=== PATIENT | female | born 1985 | race Caucasian/White ===

== ENCOUNTER 2016-03-24 13:48 | Emergency (ER) | payer MEDICAID ==
[2015-04-17 10:09] VITALS: BMI 21.0
[~2016-03-24 13:48] MED LIST: CARAFATE1 G PO; LANTUS INSULIN10 ML SC; LANTUS SOL100 UNIT/1 SC; NEURONTIN600 MG PO; NORCO 7.5/325 T1 TA1 PO; NOVOLOG MIX 70/10 ML SC; PROTONIX20 MG PO; PROTONIX40 MG PO; REGLAN5 MG PO; ROBITUSSIN DM 110 ML PO; TESSALON PERLE100 MG PO; ZOFRAN4 MG PO
[2016-03-24 17:44] LABS: APPEARANCE HAZY (CLEAR); BILIRUBIN NEGATIVE (NEGATIVE); COLOR STRAW (YELLOW); GLUCOSE 1000 mg/dL (NEGATIVE); KETONE NEGATIVE (NEGATIVE); LEUKOCYTE ESTERASE 1+ (NEGATIVE); NITRITE NEGATIVE (NEGATIVE); PROTEIN 1+ mg/dL (NEGATIVE); UROBILINOGEN NORMAL (NORMAL)
[2016-03-24 17:46] LABS: BACTERIA MODERATE /hpf (NONE SEEN); RED CELLS - URINE 0-5 /hpf (0-5); YEAST OCC /hpf (NONE SEEN)
[2016-03-24 17:59] LABS: BASOPHILS 0.3 % (0.0-2.0); EOSINOPHILS 3.2 % (0-7); HEMATOCRIT 36.7 % (36.0-48.0); HEMOGLOBIN 12.2 g/dL (12-16); IMMATURE GRANULOCYTES 0.7 % (0-5); LYMPHOCYTES 30.4 % (15-50); MCH 29.3 pg (26.0-34.0); MCHC 33.2 g/dL (31.0-37.0); MEAN PLATELET VOLUME 9.7 fL (7.4-10.4); MONOCYTES 4.3 % (2-11); NEUTROPHILS 61.1 % (40-80); RBC 4.17 10x6/uL (4.00-5.40); RDW 13.4 % (11.5-14.5); WBC 11.5 10x3/uL (4.8-10.8)
[2016-03-24 18:00] LABS: PLATELET COUNT 418 10x3/uL (130-400)
[2016-03-24 18:11] LABS: KETONE - SERUM NEGATIVE (NEGATIVE)
[2016-03-24 18:25] LABS: ALBUMIN 3.3 g/dL (3.4-5.0); ALKALINE PHOSPHATASE 158 U/L (46-116); ALT (SGPT) 25 U/L (10-68); CALCIUM 9.9 mg/dL (8.5-10.1); CHLORIDE - SERUM 92 mmol/L (98-107); CREATININE - SERUM 0.9 mg/dL (0.6-1.3); MAGNESIUM - SERUM 2.1 mg/dL (1.8-2.4); POTASSIUM - SERUM 4.9 mmol/L (3.5-5.1); PROTEIN - SERUM 7.8 g/dL (6.4-8.2); SODIUM 129 mmol/L (136-145); UREA NITROGEN 21 mg/dL (7-18); eGFR NON AFRICAN AMERICAN 78 mL/min (90-120)
[2016-03-24 18:26] LABS: CALC OSMOLALITY 287 mosm/kg (275-300)
[2016-03-24 18:27] LABS: GLUCOSE 575 mg/dL (74-106)
== END 2016-03-24 21:12 | disposition home or self-care (01) ==
LOC: D.ER 13:48
PROVIDERS: Nurse Practitioner Family
DX: E11.65 Type 2 diabetes mellitus with hyperglycemia (principal); Z79.4 Long term (current) use of insulin; M79.605 Pain in left leg; M79.604 Pain in right leg; B19.20 Unspecified viral hepatitis C without hepatic coma; F17.200 Nicotine dependence, unspecified, uncomplicated

== ENCOUNTER 2016-03-27 22:04 | Emergency (ER) | payer MEDICAID ==
[2015-04-17 10:09] VITALS: BMI 21.0
== END 2016-03-27 22:46 | disposition left against medical advice (07) ==
LOC: D.ER 22:04
DX: E11.65 Type 2 diabetes mellitus with hyperglycemia (principal); Z79.4 Long term (current) use of insulin

== ENCOUNTER 2016-03-31 21:18 | Emergency (ER) | payer MEDICAID ==
[2015-04-17 10:09] VITALS: BMI 21.0
[2016-03-31 22:07] LABS: APPEARANCE CLEAR (CLEAR); COLOR YELLOW (YELLOW)
[2016-03-31 22:08] LABS: BILIRUBIN NEGATIVE (NEGATIVE); GLUCOSE 250 mg/dL (NEGATIVE); KETONE NEGATIVE (NEGATIVE); LEUKOCYTE ESTERASE NEGATIVE (NEGATIVE); NITRITE NEGATIVE (NEGATIVE); PROTEIN TRACE mg/dL (NEGATIVE); SPECIFIC GRAVITY 1.015 (1.005-1.020); UROBILINOGEN NORMAL (NORMAL)
[2016-03-31 22:20] LABS: BASOPHILS 0.3 % (0.0-2.0); EOSINOPHILS 6.7 % (0-7); HEMATOCRIT 35.2 % (36.0-48.0); IMMATURE GRANULOCYTES 0.4 % (0-5); LYMPHOCYTES 34.8 % (15-50); MCH 29.3 pg (26.0-34.0); MCHC 31.3 g/dL (31.0-37.0); MCV 93.9 fL (80.0-100.0); MEAN PLATELET VOLUME 9.5 fL (7.4-10.4); MONOCYTES 7.9 % (2-11); NEUTROPHILS 49.9 % (40-80); PLATELET COUNT 335 10x3/uL (130-400); RBC 3.75 10x6/uL (4.00-5.40); RDW 14.3 % (11.5-14.5); WBC 9.2 10x3/uL (4.8-10.8)
[2016-03-31 22:32] LABS: ALBUMIN 3.3 g/dL (3.4-5.0); ALKALINE PHOSPHATASE 115 U/L (46-116); ALT (SGPT) 29 U/L (10-68); CALC OSMOLALITY 292 mosm/kg (275-300); CALCIUM 9.3 mg/dL (8.5-10.1); CARBON DIOXIDE 27.8 mmol/L (21.0-32.0); CHLORIDE - SERUM 104 mmol/L (98-107); CREATININE - SERUM 0.8 mg/dL (0.6-1.3); POTASSIUM - SERUM 4.4 mmol/L (3.5-5.1); PROTEIN - SERUM 7.6 g/dL (6.4-8.2); SODIUM 142 mmol/L (136-145); UREA NITROGEN 24 mg/dL (7-18); eGFR NON AFRICAN AMERICAN 90 mL/min (90-120)
[2016-03-31 22:37] LABS: GLUCOSE 200 mg/dL (74-106)
[2016-03-31 22:41] LABS: KETONE - SERUM NEGATIVE (NEGATIVE)
[2016-03-31 22:47] LABS: AMYLASE - SERUM 47 U/L (25-115); LIPASE 265 U/L (73-393); MAGNESIUM - SERUM 1.8 mg/dL (1.8-2.4)
== END 2016-04-01 00:34 | disposition home or self-care (01) ==
LOC: D.ER 21:18
PROVIDERS: Emergency Medicine; Physician Assistant Medical
DX: R60.9 Edema, unspecified (principal); F41.9 Anxiety disorder, unspecified; E11.9 Type 2 diabetes mellitus without complications; Z79.4 Long term (current) use of insulin; B19.20 Unspecified viral hepatitis C without hepatic coma

== ENCOUNTER 2016-06-14 03:25 | Inpatient (IN) | payer MEDICAID ==
[~2016-06-14] VITALS: Ht 170.2 cm; Wt 60.1 kg
[2016-06-14 04:08] LABS: BASOPHILS 0.2 % (0-2); EOSINOPHILS 0.3 % (0-7); HEMATOCRIT 40.7 % (36.0-48.0); HEMOGLOBIN 13.6 g/dL (12-16); IMMATURE GRANULOCYTES 0.2 % (0-5); LYMPHOCYTES 21.6 % (15-50); MCH 28.4 pg (26.0-34.0); MCHC 33.4 g/dL (31.0-37.0); MEAN PLATELET VOLUME 10.4 fL (7.4-10.4); MONOCYTES 2.3 % (2-11); NEUTROPHILS 75.4 % (40-80); PLATELET COUNT 269 10x3/uL (130-400); RBC 4.79 10x6/uL (4.00-5.40); RDW 13.5 % (11.5-14.5)
[2016-06-14 04:14] LABS: KETONE - SERUM SMALL mg/dL (NEGATIVE)
[2016-06-14 04:24] LABS: ALKALINE PHOSPHATASE 88 U/L (46-116); ALT (SGPT) 14 U/L (10-68); AMYLASE - SERUM 27 U/L (25-115); CALC OSMOLALITY 293 mosm/kg (275-300); CALCIUM 10.5 mg/dL (8.5-10.1); CARBON DIOXIDE 24.5 mmol/L (21.0-32.0); CHLORIDE - SERUM 93 mmol/L (98-107); CREATININE - SERUM 1.4 mg/dL (0.6-1.3); LIPASE 152 U/L (73-393); PROTEIN - SERUM 8.2 g/dL (6.4-8.2); SODIUM 134 mmol/L (136-145); UREA NITROGEN 25 mg/dL (7-18); eGFR NON AFRICAN AMERICAN 47 mL/min (90-120)
[2016-06-14 04:26] LABS: GLUCOSE 493 mg/dL (74-106)
[2016-06-14 04:48] LABS: APPEARANCE HAZY (CLEAR); BILIRUBIN NEGATIVE (NEGATIVE); COLOR STRAW (YELLOW); GLUCOSE 1000 mg/dL (NEGATIVE); KETONE MODERATE mg/dL (NEGATIVE); LEUKOCYTE ESTERASE NEGATIVE (NEGATIVE); NITRITE NEGATIVE (NEGATIVE); PROTEIN 2+ mg/dL (NEGATIVE); SPECIFIC GRAVITY 1.015 (1.005-1.020); UROBILINOGEN NORMAL (NORMAL)
[2016-06-14 04:57] LABS: BACTERIA FEW /hpf (NONE SEEN); EPITHELIAL CELLS 0-5 /hpf (0-5); GRANULAR CAST RARE /lpf (NONE SEEN); HYALINE CAST OCC /lpf (NONE SEEN); WHITE CELLS - URINE 0-5 /hpf (0-5); YEAST >1+ /hpf (NONE SEEN)
[2016-06-14] MEDS ORDERED: OMEPRAZOLE20 M1 PO (06:09)
[2016-06-14 06:28] VITALS: BP 121/88; BMI 19.6
--- NOTE | 2016-06-14 07:43 | NUR ---
PT ARRIVED TO ROOM @ 0600 FROM ER. ASSESSMENT COMPLETED BY RN. PT BLOOD GLUCOSE LEVEL PRIOR TO TRANSPORTING TO ROOM 299. BLOOD SUGAR CHECKED BY RN, NOTED TO BE 299. CALLED PHARMACY TO REQUEST INSULIN VIAL, SPOKE WITH ANGY WHO STATES IT WILL BE DELIVERED. STILL AWAITING INSULIN VIAL. NOTIFIED ONCOMING NURSE OF BLOOD SUGAR LEVEL AND AWAITING INSULIN VIAL.
[2016-06-14 08:20] VITALS: BP 121/88
--- NOTE | 2016-06-14 09:10 | NUR ---
PT VOMITING IN TRASH CAN. BLUE BAG GIVEN. TO BATHROOM TO VOID AND PHENERGAN GIVEN WITH 25 GA 1 1/2 NEEDLE TO RIGHT GLUT. CALL LIGHT IN REACH. INSTRUCTED TO CALL FOR ASSIST
[2016-06-14 12:14] VITALS: Ht 170.2 cm; Wt 60.1 kg
[2016-06-14 12:16] LABS: HEMOGLOBIN A1C 11.7 % (4.8-6.0)
[2016-06-14 12:58] VITALS: BP 152/100
--- NOTE | 2016-06-14 13:47 | NUR ---
PT RESTING QUIETLY. STATED EARILER THAT NAUSEA HAD GONE AWAY WITH ZOFRAN DRIP
[2016-06-14 16:19] VITALS: BP 159/98
[2016-06-14 20:00] VITALS: BP 153/101
[2016-06-14 22:32] LABS: UDS - AMPHET NEGATIVE QUAL (NEGATIVE); UDS - BARB NEGATIVE QUAL (NEGATIVE); UDS - BENZO NEGATIVE QUAL (NEGATIVE); UDS - COCAINE NEGATIVE QUAL (NEGATIVE); UDS - METH NEGATIVE QUAL (NEGATIVE); UDS - OPIATE POSITIVE QUAL (NEGATIVE); UDS - PCP NEGATIVE QUAL (NEGATIVE); UDS - THC POSITIVE QUAL (NEGATIVE)
[2016-06-14 23:54] VITALS: BP 131/77
--- NOTE | 2016-06-15 07:30 | NUR ---
PATIENT RECEIVED SITTING UP ON SIDE OF BED ALERT AND VOMITING. SIDE RAILS UP X2. BED IN LOW POSITION. CALL LIGHT IN REACH.
[2016-06-15 08:03] VITALS: BP 161/107
[2016-06-15 08:20] LABS: BASOPHILS 0.1 % (0-2); EOSINOPHILS 0.2 % (0-7); HEMATOCRIT 38.3 % (36.0-48.0); HEMOGLOBIN 12.7 g/dL (12-16); IMMATURE GRANULOCYTES 0.3 % (0-5); LYMPHOCYTES 18.8 % (15-50); MCH 28.3 pg (26.0-34.0); MCHC 33.2 g/dL (31.0-37.0); MCV 85.3 fL (80.0-100.0); MONOCYTES 3.3 % (2-11); NEUTROPHILS 77.3 % (40-80); PLATELET COUNT 248 10x3/uL (130-400); RBC 4.49 10x6/uL (4.00-5.40); RDW 14.1 % (11.5-14.5); WBC 13.2 10x3/uL (4.8-10.8)
--- NOTE | 2016-06-15 08:29 | NUR ---
SITTING UP ON SIDE OF BED ALERT. NO SIGNS OF DISTRESS NOTED. SCHEDULED PROTONIX ADMINISTERED. C/O PAIN 11/26. MORPHINE ADMINSITERED PER PRN ORDER. NO FURTHER NEEDS VOICED. SIDE RAILS UP X2. BED IN LOW POSITION. CALL LIGHT IN REACH.
[2016-06-15 08:51] LABS: ALBUMIN 3.6 g/dL (3.4-5.0); BILIRUBIN - TOTAL 0.59 mg/dL (0.2-1.3); CALCIUM 9.3 mg/dL (8.5-10.1); CARBON DIOXIDE 18.8 mmol/L (21.0-32.0); CREATININE - SERUM 1.1 mg/dL (0.6-1.3); PROTEIN - SERUM 7.6 g/dL (6.4-8.2); THYROID STIMULATING HORMONE 0.1 uIU/mL (0.36-3.74)
[2016-06-15 08:52] LABS: ANION GAP 23.4 mmol/L (8-16); POTASSIUM - SERUM 3.2 mmol/L (3.5-5.1)
--- NOTE | 2016-06-15 10:04 | NUR ---
PATIENT IN LEFT LATERAL POSITION RESTING WITH EYES CLOSED. RESPIRATIONS EVEN AND UNLABORED. SIDE RAILS UP X2. BED IN LOW POSITION. CALL LIGHT IN REACH.
--- NOTE | 2016-06-15 12:32 | NUR ---
PATIENT IN BED CRYING. C/O PAIN TO RUQ ABD AND BACK 10/10. 2MG MORPHINE ADMINISTERED SLOW IVP PER PRN ORDER. NO FURTHER NEEDS VOICED. SIDE RAILS UP X2. BED IN LOW POSITION. CALL LIGHT IN REACH.
[2016-06-15 12:33] VITALS: BP 123/71
[2016-06-15] MEDS ORDERED: NOVOLOG MIX 70/10 ML SC (15:28)
--- NOTE | 2016-06-15 15:30 | NUR ---
PATIENT ALERT IN MID ISABEL POSITION. RESPIRATIONS EVEN AND UNLABORED. SIDE RAILS UP X2. BED IN LOW POSITION. CALL LIGHT IN REACH. NO NEEDS VOICED.
[2016-06-15 15:34] VITALS: BP 126/76
--- NOTE | 2016-06-15 17:30 | NUR ---
PATIENT IN RIGHT LATERAL POSITION RESTING QUIETLY WITH EYES CLOSED. RESPIRATIONS EVEN AND UNLABORED. SIDE RAILS UP X2. BED IN LOW POSITION. CALL LIGHT IN REACH.
--- NOTE | 2016-06-15 19:55 | NUR ---
PT SITTING UP ON EDGE OF BED, ASSESSMENT COMPLETED, C/O PAIN AND NAUSEA WITH MOVEMENT, IV INFUSING TO R FOREARM, VISITOR IN ROOM, SR'S UP , CL IN REACH, WILL MONITOR
[2016-06-15 20:00] VITALS: BP 146/103
--- NOTE | 2016-06-15 20:45 | NUR ---
MEDS GIVEN PER MAR BY Tyrese RODRIGUEZ RN
--- NOTE | 2016-06-15 21:48 | NUR ---
RESTING WITH EYES CLOSED, NO DISTRESS NOTED, CL IN REACH, WILL CONTINUE TO MONITOR
--- NOTE | 2016-06-15 23:33 | NUR ---
RESTING WITH EYES CLOSED, RESP WITH EASE, NO DISTRESS NOTED, CL IN REACH
--- NOTE | 2016-06-16 01:03 | NUR ---
PRN MORPHINE AND PHENERGAN GIVEN FOR C/O ABD PAIN 11/26 AND NAUSEA, NO EMESIS AT THIS TIME, NARDA WELL, SR'S UP, CL IN REACH
[2016-06-16 04:00] VITALS: BP 157/102
--- NOTE | 2016-06-16 05:16 | NUR ---
PRN MORPHINE AND PHENERGAN GIVEN FOR C/O OF ABD PAIN 10/10 AND NAUSEA WITH NO EMESIS ALONG WITH ROUTINE MEDS, NARDA WELL, LAB IN ROOM, CL IN REACH
--- NOTE | 2016-06-16 05:42 | NUR ---
AMBULATING IN ONTIVEROS WITH VISITOR, ADVISED TO STAY NEAR ROOM AND NURSES DESK, UNDERSTANDING VOICED, NO DISTRESS NOTED
[2016-06-16 06:20] LABS: BASOPHILS 0.1 % (0-2); EOSINOPHILS 2.7 % (0-7); HEMOGLOBIN 12.8 g/dL (12-16); IMMATURE GRANULOCYTES 0.2 % (0-5); LYMPHOCYTES 37.9 % (15-50); MCHC 32.8 g/dL (31.0-37.0); MCV 85.3 fL (80.0-100.0); MEAN PLATELET VOLUME 10.4 fL (7.4-10.4); MONOCYTES 8.4 % (2-11); NEUTROPHILS 50.7 % (40-80); PLATELET COUNT 269 10x3/uL (130-400); RBC 4.57 10x6/uL (4.00-5.40); RDW 14.1 % (11.5-14.5); WBC 14.5 10x3/uL (4.8-10.8)
[2016-06-16 06:47] LABS: ALBUMIN 3.3 g/dL (3.4-5.0); ALKALINE PHOSPHATASE 68 U/L (46-116); ALT (SGPT) 13 U/L (10-68); AMYLASE - SERUM 36 U/L (25-115); CALCIUM 8.9 mg/dL (8.5-10.1); CARBON DIOXIDE 18.8 mmol/L (21.0-32.0); CHLORIDE - SERUM 100 mmol/L (98-107); LIPASE 253 U/L (73-393); POTASSIUM - SERUM 3.1 mmol/L (3.5-5.1); SODIUM 138 mmol/L (136-145); eGFR NON AFRICAN AMERICAN 90 mL/min (90-120)
[2016-06-16 06:48] LABS: CALC OSMOLALITY 278 mosm/kg (275-300); CREATININE - SERUM 0.8 mg/dL (0.6-1.3); GLUCOSE 186 mg/dL (74-106); UREA NITROGEN 8 mg/dL (7-18)
--- NOTE | 2016-06-16 07:30 | NUR ---
PATIENT RECEIVED IN LOW ISABEL POSITION RESTING QUIETLY WITH EYES CLOSED. RESPIRATIONS EVEN AND UNLABORED. SIDE RAILS UP X2. BED IN LOW POSITION. CALL LIGHT IN REACH.
[2016-06-16 07:57] VITALS: BP 129/89
--- NOTE | 2016-06-16 09:16 | NUR ---
ALERT IN BED. SCHEDULED MEDICATION ADMINISTERED WELL PRN MORPHINE FOR PAIN 10/27 AND PHENERGAN FOR NAUSEA. DENIES FURTHER NEEDS. SIDE RAILS UP X2. BED IN LOW POSITION. CALL LIGHT IN REACH.
[2016-06-16 12:41] VITALS: BP 117/76
[2016-06-16 15:57] VITALS: BP 138/98
--- NOTE | 2016-06-16 17:22 | NUR ---
ALERT IN BED. C/O PAIN 10/27. MORPHINE PER PRN ORDER. CONSENTS OBTAINED FOR SCHEDULED EGD. DENIES NEEDS. SIDE RAILS UP X2. BED IN LOW POSITION. CALL LIGHT IN REACH.
--- NOTE | 2016-06-16 19:15 | NUR ---
RECIEVED SHIFT REPORT. PT IS LYING IN BED. ALERT AND ORIENTED AND ABLE TO VERBALIZE NEEDS. IV IS PATENT AND FLUIDS ARE RUNNING PER ORDER. SCD'S OFF AT THIS TIME. PT IS AMBULATORY BUT WAS INSTRUCTED TO CALL FOR ANY ASSISTANCE NEEDED. PT STATES PAIN IS 9/10. NO NEEDS ARE VERBALIZED AT THIS TIME. WILL CONTINUE TO MONITOR. SIDE RAILS ARE UP X 2. BED IS IN LOWEST POSITION. CALL LIGHT IS WITHIN REACH.
[2016-06-16 20:00] VITALS: BP 145/109
--- NOTE | 2016-06-16 20:59 | NUR ---
SHIFT ASSESSMENT COMPLETED. NIGHT MEDS GIVEN WITH NO PROBLEMS. PT C/O NAUSEA. ADMINISTERED PRESCRIBED PRN IM PHENERGAN PER ORDER. PT RECIEVED NO INSULIN PER SLIDING SCALE FOR SGAB=791. NO NEEDS ARE VOICED. WILL MONITOR. SIDE RAILS X 2. BED LOW. CALL LIGHT IN REACH.
[2016-06-17 04:00] VITALS: BP 148/102
[2016-06-17 06:08] LABS: BASOPHILS 0.2 % (0-2); EOSINOPHILS 4.3 % (0-7); HEMATOCRIT 37.2 % (36.0-48.0); HEMOGLOBIN 12.5 g/dL (12-16); IMMATURE GRANULOCYTES 0.3 % (0-5); LYMPHOCYTES 30.6 % (15-50); MCH 28.3 pg (26.0-34.0); MCHC 33.6 g/dL (31.0-37.0); MCV 84.2 fL (80.0-100.0); MEAN PLATELET VOLUME 10.1 fL (7.4-10.4); MONOCYTES 9.3 % (2-11); NEUTROPHILS 55.3 % (40-80); PLATELET COUNT 250 10x3/uL (130-400); RBC 4.42 10x6/uL (4.00-5.40); RDW 13.7 % (11.5-14.5); WBC 11.8 10x3/uL (4.8-10.8)
[2016-06-17 06:33] LABS: INR 0.99 (0.85-1.17); PROTIME 12.9 SECONDS (11.6-15.0)
[2016-06-17 06:52] LABS: ALBUMIN 3.1 g/dL (3.4-5.0); ALKALINE PHOSPHATASE 65 U/L (46-116); ALT (SGPT) 12 U/L (10-68); AMYLASE - SERUM 37 U/L (25-115); BILIRUBIN - TOTAL 0.75 mg/dL (0.2-1.3); CALCIUM 8.4 mg/dL (8.5-10.1); CARBON DIOXIDE 21.6 mmol/L (21.0-32.0); CHLORIDE - SERUM 101 mmol/L (98-107); CREATININE - SERUM 0.8 mg/dL (0.6-1.3); GLUCOSE 178 mg/dL (74-106); LIPASE 269 U/L (73-393); PROTEIN - SERUM 6.9 g/dL (6.4-8.2); SODIUM 139 mmol/L (136-145); eGFR NON AFRICAN AMERICAN 90 mL/min (90-120)
[2016-06-17 06:53] LABS: CALC OSMOLALITY 278 mosm/kg (275-300); UREA NITROGEN 4 mg/dL (7-18)
--- NOTE | 2016-06-17 07:25 | NUR ---
PATIENT RECEIVED IN LEFT LATERAL POSITION RESTING QUIETLY. RESPIRATIONS EVEN AND UNLABORED. SIDE RAILS UP X2. BED IN LOW POSITION. CALL LIGHT IN REACH.
[2016-06-17 07:54] VITALS: BP 169/110
--- NOTE | 2016-06-17 08:12 | NUR ---
PATIENT OFF FLOOR TO GI LAB
--- NOTE | 2016-06-17 09:01 | NUR ---
PATIENT BACK TO ROOM FROM GI LAB VIA BED. A/O X4. NO SIGNS OF DISTRESS NOTED. SIDE RAILS UP X2. BED IN LOW POSITION. CALL LIGHT IN REACH.
[2016-06-17 11:26] VITALS: BP 166/110
--- NOTE | 2016-06-17 12:10 | NUR ---
ALERT IN BED TALKING ON PHONE. NO SIGNS OF DISTRESS NOTED. SIDE RAILS UP X2. BED IN LOW POSITION. CALL LIGHT IN REACH.
--- NOTE | 2016-06-17 13:25 | NUR ---
ALERT IN BED. C/O PAIN 10/27. 2MG MORPHINE ADMINISTERED SLOW IVP. WELL TOLERATED. DENIES FURTHER NEEDS. CALL LIGHT IN REACH. BED IN LOW POSITION. GUEST AT BEDSIDE.
--- NOTE | 2016-06-17 14:15 | NUR ---
PATIENT SITTING UP ON SIDE OF BED. NOW RATES PAIN 6/10. NO NEEDS VOICED. BED IN LOW POSITION. CALL LIGHT IN REACH.
[2016-06-17 15:41] VITALS: BP 110/65
--- NOTE | 2016-06-17 15:46 | NUR ---
NUTRITION MONITORING & EVAL PER PT REQUEST PROVIDED DIET INFORMATION FOR GASTROPARESIS, LOW FIBER DIET. RD FOLLOWING
--- NOTE | 2016-06-17 16:15 | NUR ---
ALERT IN BED. NO SIGNS OF DISTRESS NOTED. ACCU CHECK 156. INSULIN PER SLIDING SCALE. DENIES NEEDS. SIDE RAILS UP X2. BED IN LOW POSITION. CALL LIGHT IN REACH.
[2016-06-17 20:00] VITALS: BP 130/85
--- NOTE | 2016-06-17 20:05 | NUR ---
SITTING UP IN BED TALKING WITH VISITOR, ASSESSMENT COMPLETED, NO ACUTE DISTRESS NOTED, DENIES NAUSEA, SR'S UP, CL IN REACH, WILL MONITOR
--- NOTE | 2016-06-17 22:00 | NUR ---
MEDS GIVEN PER APR, 8 UNITS INSULIN GIVEN PER SLIDING SCALE, PRN MORPHINE GIVEN FOR C/O ABD PAIN 08/26, NARDA ALL WELL, SANDWHICH GIVEN PER REQUEST, VISITOR IN ROOM, CL IN REACH
--- NOTE | 2016-06-17 23:50 | NUR ---
RESTING WITH EYES CLOSED, RESP WITH EASE, NO DISTRESS NOTED, CL IN REACH
[2016-06-18] VITALS: BP 105/63
[2016-06-18 05:38] LABS: BASOPHILS 0.1 % (0-2); EOSINOPHILS 7.4 % (0-7); HEMATOCRIT 32.5 % (36.0-48.0); HEMOGLOBIN 10.7 g/dL (12-16); IMMATURE GRANULOCYTES 0.1 % (0-5); LYMPHOCYTES 45.7 % (15-50); MCH 27.6 pg (26.0-34.0); MCHC 32.9 g/dL (31.0-37.0); MCV 83.8 fL (80.0-100.0); MEAN PLATELET VOLUME 9.9 fL (7.4-10.4); MONOCYTES 8.3 % (2-11); NEUTROPHILS 38.4 % (40-80); PLATELET COUNT 243 10x3/uL (130-400); RBC 3.88 10x6/uL (4.00-5.40); WBC 9.3 10x3/uL (4.8-10.8)
[2016-06-18 06:10] LABS: ALBUMIN 2.7 g/dL (3.4-5.0); ALKALINE PHOSPHATASE 54 U/L (46-116); ALT (SGPT) 11 U/L (10-68); AMYLASE - SERUM 36 U/L (25-115); BILIRUBIN - TOTAL 0.48 mg/dL (0.2-1.3); CALC OSMOLALITY 279 mosm/kg (275-300); CALCIUM 8.2 mg/dL (8.5-10.1); CARBON DIOXIDE 25.9 mmol/L (21.0-32.0); CHLORIDE - SERUM 106 mmol/L (98-107); CREATININE - SERUM 0.8 mg/dL (0.6-1.3); GLUCOSE 177 mg/dL (74-106); LIPASE 305 U/L (73-393); POTASSIUM - SERUM 3.1 mmol/L (3.5-5.1); PROTEIN - SERUM 5.8 g/dL (6.4-8.2); SODIUM 140 mmol/L (136-145); UREA NITROGEN 5 mg/dL (7-18); eGFR NON AFRICAN AMERICAN 90 mL/min (90-120)
--- NOTE | 2016-06-18 07:35 | NUR ---
PATIENT SITTING UP IN BED DOING HER MAKE UP. PATIENT SMILING. STATED SHE IS READY FOR BREAKFAST. PATIENT DENIES NEEDS. NO SIGNS OF DISTRESS NOTED. BED IN LOWEST POSITION, CALL LIGHT IN REACH. BED RAILS UP X'S 2.
--- NOTE | 2016-06-18 08:02 | NUR ---
REPORT GIVEN TO LU PHILIPPE.
[2016-06-18 08:07] VITALS: BP 107/72
--- NOTE | 2016-06-18 09:24 | NUR ---
Patient Name: GREGOR GARCIA Admission Status: ER Accout number: [id number] Admission Date: 06-14-2016 : 1985 Admission Diagnosis:VOMITING, UNSPECIFIED Attending: LORI Current LOS: 4 Anticipated DC Date: 06-21-2016 Planned Disposition: Home Primary Insurance: MEDICAID [place] PENDING Discharge Planning Comments: CM MET WITH PATIENT REGARDING D/C NEEDS AND PLANS. PATIENT STATED HER FRIEND (DWIGHT) WILL DRIVE HER HOME AT DISCHARGE. PATIENT STATED THERE IS ONE STEP W/RAILING TO ENTER HOME AND NO STAIRS INSIDE. PATIENT STATED SHE IS INDEPENDENT WITH HER CARE. PATIENT HAS A GLUCOMETER AND CHECKS HER SUGAR 2X A DAY. PATIENT SEES ([facility]) AT [facility]. PATIENTS PHARMACY IS [facility]. PATIENT DOES NOT WANT HOME HEALTH AT DISCHARGE. CM WILL CONTINUE TO FOLLOW PATIENT WITH D/C NEEDS AND PLANS. PCP [facility] ([facility]) [facility] [employer] [phone] DWIGHT (FRIEND) [phone] [place]: Emeli Kim Is the patient Alert and Oriented? Yes 0 * How many steps to enter\exit or inside your home? 1 W/RAIL 0 * PCP [facility] ([facility]) 0 * Pharmacy [facility] [employer] 0 * Preadmission Environment Home with Family 0 * ADLs Independent 0 * Equipment Glucometer 0 * List name and contact numbers for known caregivers / representatives who currently or will assist patient after discharge: DWIGHT (FRIEND) [phone] 0 * Community resources currently utilized None 0 * Additional services required to return to the preadmission environment? Yes 0 * Can the patient safely return to the preadmission environment? Yes 0 * Has this patient been hospitalized within the prior 30 days at any hospital? No 0 Grand Total: 0
--- NOTE | 2016-06-18 10:24 | OP ---
PATIENT NAME: GREGOR GARCIA MEDICAL RECORD: [id number] :[birth year] LOCATION:[id number] ADMISSION DATE:06/14/16 SURGEON: PRABHAKAR CRENSHAW DO DATE OF OPERATION: 06/17/2016 PROCEDURE: EGD with biopsies. INDICATIONS: Epigastric abdominal pain, nausea and vomiting, history of gastroparesis. SCOPE: Olympus video gastroscope. MEDICATIONS: Propofol 220 mg IV per anesthesia. FINDINGS: Informed consent was given. The patient was made comfortable with the above medication. After reaching an adequate level of sedation by slow IV push, the patient was placed on her left side. The endoscope was then advanced under direct visualization through the mouth to the second portion of the duodenum. The upper third of the esophagus appeared normal. There was evidence of moderate LA class B reflux-induced esophagitis in the middle and distal thirds of the esophagus down to the GE junction. There were some erosions and ulcerations present with this esophagitis. The endoscope was advanced into the stomach and retroflexed to view the cardia where a small sliding hiatal hernia was present. In the body and fundus of the stomach, there was a [id number] amount of fluid and food retention, which was easily suctioned through the endoscope. There were areas of patchy gastritis located throughout the fundus, body, and antrum of the stomach. Random biopsies were taken and submitted for histology. The endoscope was advanced down into the duodenum where the bulb and second portion appeared normal from the mucosa standpoint. There was a large diverticulum noted in the transition from the first to second portion of the duodenum. The endoscope was then withdrawn from the patient. The patient tolerated the procedure well and there were no complications. IMPRESSION: 1. Moderate LA class B reflux-induced esophagitis. 2. Small sliding hiatal hernia. 3. Patchy gastritis, biopsies taken. 4. Small sliding hiatal hernia. 5. Duodenal diverticulum. PLAN AND RECOMMENDATIONS: 1. Return to floor. 2. Continue Reglan 5 mg IV q.a.c. and h.s. 3. Recommend small frequent meals for gastroparesis. 4. Glycemic control. 5. Continue PPI therapy at 40-mg equivalent daily for 8 weeks. 6. Carafate suspension 1 g q.a.c. and h.s. times 14 days to help with healing of gastritis and esophagitis. 7. Marijuana cessation. TRANSINT:[id number] Voice Confirmation ID: [id number] DOCUMENT ID: [id number] OPERATIVE REPORT [id number] GREGOR GARCIA,PRABHAKAR Stauffer DO at 1024 CC: [id number] DICTATION DATE: 06/17/1650 FORESTRY PATROLMAN: 06/17/16 0958 ADM IN [facility] [address] [id number]
[2016-06-18] MEDS ORDERED: OMEPRAZOLE40 MG PO (11:25)
[2016-06-18] MEDS ORDERED: REGLAN5 MG PO (11:26)
[2016-06-18] MEDS ORDERED: NEURONTIN600 MG PO (12:51)
--- NOTE | 2016-06-18 13:23 | NUR ---
PT C/O LIGHTHEADNESS. BP CHECKED WITH 92/54 AND BS OF 64. JOSIAS MILK, KEYSHA CRACKERS AND PEANUT BUTTER GIVEN. WILL RECHECK SUGAR SHORTLY
--- NOTE | 2016-06-18 13:35 | NUR ---
CM REASSESSMENT NOTE: PATIENT IS DISCHARGING HOME TODAY-FRIEND IS DRIVING HER. PATIENT REF. HOME HEALTH AND PATIENT HAD NO OTHER NEEDS.
--- NOTE | 2016-06-18 13:56 | NUR ---
bs 100. no complaints of headache, blurred vision, or dizziness. discharge paper reviewed with patient and friend in room.
== END 2016-06-18 14:06 | disposition home or self-care (01) | DRG 638 ==
LOC: D.ER 03:25 → D.MS 05:11
PROVIDERS: Emergency Medicine; Internal Medicine Gastroenterology; ADMIT Family Medicine
PROC: 0DB68ZX Excision of Stomach, Via Natural or Artificial Opening Endoscopic, Diagnostic (ICD-10-PCS; principal; 2016-06-17 08:30)
DX: E10.65 Type 1 diabetes mellitus with hyperglycemia (principal); K22.10 Ulcer of esophagus without bleeding; N17.9 Acute kidney failure, unspecified; E10.40 Type 1 diabetes mellitus with diabetic neuropathy, unspecified; Z79.4 Long term (current) use of insulin; E86.0 Dehydration; R10.13 Epigastric pain; R00.0 Tachycardia, unspecified; F17.200 Nicotine dependence, unspecified, uncomplicated; B18.2 Chronic viral hepatitis C; F12.20 Cannabis dependence, uncomplicated; K21.0 Gastro-esophageal reflux disease with esophagitis; K44.9 Diaphragmatic hernia without obstruction or gangrene; K29.70 Gastritis, unspecified, without bleeding; K57.10 Diverticulosis of small intestine without perforation or abscess without bleeding

== ENCOUNTER 2016-06-22 23:06 | Emergency (ER) | payer MEDICAID ==
[2016-06-14 12:14] VITALS: BMI 19.5
[~2016-06-22 23:06] MED LIST changes: +OMEPRAZOLE20 M1 PO; +OMEPRAZOLE40 MG PO
[2016-06-23 00:02] LABS: BASOPHILS 0.1 % (0-2); EOSINOPHILS 3.5 % (0-7); HEMATOCRIT 33.8 % (36.0-48.0); HEMOGLOBIN 10.9 g/dL (12-16); IMMATURE GRANULOCYTES 0.2 % (0-5); LYMPHOCYTES 41.9 % (15-50); MCH 27.9 pg (26.0-34.0); MCHC 32.2 g/dL (31.0-37.0); MCV 86.7 fL (80.0-100.0); MEAN PLATELET VOLUME 9.4 fL (7.4-10.4); MONOCYTES 7.9 % (2-11); NEUTROPHILS 46.4 % (40-80); PLATELET COUNT 301 10x3/uL (130-400); RDW 15.1 % (11.5-14.5); WBC 10.1 10x3/uL (4.8-10.8)
[2016-06-23 00:16] LABS: ALBUMIN 2.9 g/dL (3.4-5.0); ANION GAP 11.2 mmol/L (8-16); CARBON DIOXIDE 27.7 mmol/L (21.0-32.0); CREATININE - SERUM 1.1 mg/dL (0.6-1.3); POTASSIUM - SERUM 3.9 mmol/L (3.5-5.1); PROTEIN - SERUM 6.5 g/dL (6.4-8.2)
[2016-06-23 00:34] LABS: BILIRUBIN - TOTAL 0.12 mg/dL (0.2-1.3)
[2016-06-23 00:51] LABS: APPEARANCE CLEAR (CLEAR); COLOR YELLOW (YELLOW); LEUKOCYTE ESTERASE NEGATIVE (NEGATIVE); NITRITE NEGATIVE (NEGATIVE); PROTEIN TRACE mg/dL (NEGATIVE)
[2016-06-23 00:52] LABS: BILIRUBIN NEGATIVE (NEGATIVE); GLUCOSE 1000 mg/dL (NEGATIVE); HCG URINE NEGATIVE (NEGATIVE); KETONE NEGATIVE (NEGATIVE); UROBILINOGEN NORMAL (NORMAL)
== END 2016-06-23 02:00 | disposition home or self-care (01) ==
LOC: D.ER 23:06
PROVIDERS: Emergency Medicine
DX: R73.9 Hyperglycemia, unspecified (principal); R22.43 Localized swelling, mass and lump, lower limb, bilateral; E11.9 Type 2 diabetes mellitus without complications; Z79.4 Long term (current) use of insulin

== ENCOUNTER 2016-11-06 10:35 | Emergency (ER) | payer MEDICAID ==
[2016-06-14 12:14] VITALS: BMI 19.5
[2016-11-06 11:13] LABS: BASOPHILS 0.2 % (0-2); EOSINOPHILS 1.9 % (0-7); HEMATOCRIT 39.5 % (36.0-48.0); HEMOGLOBIN 13.4 g/dL (12-16); IMMATURE GRANULOCYTES 0.2 % (0-5); MCHC 33.9 g/dL (31.0-37.0); MCV 91.4 fL (80.0-100.0); MEAN PLATELET VOLUME 9.9 fL (7.4-10.4); MONOCYTES 8.2 % (2-11); NEUTROPHILS 60.5 % (40-80); PLATELET COUNT 292 10x3/uL (130-400); RBC 4.32 10x6/uL (4.00-5.40); RDW 14.3 % (11.5-14.5); WBC 9.6 10x3/uL (4.8-10.8)
[2016-11-06 11:19] LABS: HCG URINE NEGATIVE (NEGATIVE)
[2016-11-06 11:19] LABS: KETONE - SERUM NEGATIVE (NEGATIVE)
[2016-11-06 11:25] LABS: UDS - AMPHET NEGATIVE QUAL (NEGATIVE); UDS - BARB NEGATIVE QUAL (NEGATIVE); UDS - BENZO NEGATIVE QUAL (NEGATIVE); UDS - COCAINE NEGATIVE QUAL (NEGATIVE); UDS - METH NEGATIVE QUAL (NEGATIVE); UDS - OPIATE NEGATIVE QUAL (NEGATIVE); UDS - PCP NEGATIVE QUAL (NEGATIVE); UDS - THC POSITIVE QUAL (NEGATIVE)
[2016-11-06 11:27] LABS: ALBUMIN 3.8 g/dL (3.4-5.0); ALKALINE PHOSPHATASE 69 U/L (46-116); ALT (SGPT) 17 U/L (10-68); AMYLASE - SERUM 28 U/L (25-115); CALC OSMOLALITY 288 mosm/kg (275-300); CALCIUM 9.2 mg/dL (8.5-10.1); CARBON DIOXIDE 28.2 mmol/L (21.0-32.0); CHLORIDE - SERUM 97 mmol/L (98-107); CREATININE - SERUM 1.3 mg/dL (0.6-1.3); LIPASE 181 U/L (73-393); POTASSIUM - SERUM 4.1 mmol/L (3.5-5.1); SODIUM 135 mmol/L (136-145); UREA NITROGEN 29 mg/dL (7-18); eGFR NON AFRICAN AMERICAN 51 mL/min (90-120)
[2016-11-06 11:29] LABS: D-DIMER-QUANTITATIVE < 0.27 ug/mLFEU (0.20-0.54)
[2016-11-06 11:31] LABS: GLUCOSE 328 mg/dL (74-106)
[2016-11-06 11:44] LABS: APPEARANCE HAZY (CLEAR); BACTERIA FEW /hpf (NONE SEEN); BILIRUBIN NEGATIVE (NEGATIVE); COLOR YELLOW (YELLOW); EPITHELIAL CELLS 0-5 /hpf (0-5); GLUCOSE 250 mg/dL (NEGATIVE); KETONE NEGATIVE (NEGATIVE); LEUKOCYTE ESTERASE NEGATIVE (NEGATIVE); MUCUS <1+ /lpf (NONE SEEN); NITRITE NEGATIVE (NEGATIVE); PROTEIN 3+ mg/dL (NEGATIVE); RED CELLS - URINE 0-5 /hpf (0-5); SPECIFIC GRAVITY 1.015 (1.005-1.020); UROBILINOGEN NORMAL (NORMAL); WHITE CELLS - URINE RARE /hpf (0-5)
== END 2016-11-06 12:05 | disposition left against medical advice (07) ==
LOC: D.ER 10:35
PROVIDERS: Emergency Medicine; Nurse Practitioner Family
DX: R10.13 Epigastric pain (principal); R11.10 Vomiting, unspecified; E11.65 Type 2 diabetes mellitus with hyperglycemia; Z79.4 Long term (current) use of insulin; B19.20 Unspecified viral hepatitis C without hepatic coma

== ENCOUNTER 2016-12-16 13:28 | Emergency (ER) | payer MEDICAID ==
[2016-06-14 12:14] VITALS: BMI 19.5
[2016-12-16 14:43] LABS: BASOPHILS 0.2 % (0-2); HEMATOCRIT 36.1 % (36.0-48.0); HEMOGLOBIN 11.9 g/dL (12-16); IMMATURE GRANULOCYTES 0.2 % (0-5); LYMPHOCYTES 30.7 % (15-50); MCH 31.2 pg (26.0-34.0); MCV 94.5 fL (80.0-100.0); MEAN PLATELET VOLUME 9.9 fL (7.4-10.4); MONOCYTES 4.3 % (2-11); NEUTROPHILS 60.6 % (40-80); PLATELET COUNT 276 10x3/uL (130-400); RBC 3.82 10x6/uL (4.00-5.40); RDW 13.3 % (11.5-14.5); WBC 10.6 10x3/uL (4.8-10.8)
[2016-12-16 14:59] LABS: ALBUMIN 3.6 g/dL (3.4-5.0); BILIRUBIN - TOTAL 0.11 mg/dL (0.2-1.3); CALCIUM 9.9 mg/dL (8.5-10.1); CARBON DIOXIDE 26.1 mmol/L (21.0-32.0); CREATININE - SERUM 1.2 mg/dL (0.6-1.3); POTASSIUM - SERUM 5.1 mmol/L (3.5-5.1); PROTEIN - SERUM 7.5 g/dL (6.4-8.2)
== END 2016-12-16 15:20 | disposition left against medical advice (07) ==
LOC: D.ER 13:28
PROVIDERS: Family Medicine
DX: E87.5 Hyperkalemia (principal)

== ENCOUNTER 2017-02-08 12:06 | Emergency (ER) | payer MEDICAID ==
[2016-06-14 12:14] VITALS: BMI 19.5
== END 2017-02-08 13:47 | disposition home or self-care (01) ==
LOC: D.ER 12:06
DX: G62.9 Polyneuropathy, unspecified (principal); E11.9 Type 2 diabetes mellitus without complications; Z79.4 Long term (current) use of insulin; B19.20 Unspecified viral hepatitis C without hepatic coma; F17.200 Nicotine dependence, unspecified, uncomplicated

== ENCOUNTER 2017-07-15 08:16 | Emergency (ER) | payer MEDICAID ==
[2016-06-14 12:14] VITALS: BMI 19.5
[2017-07-15 09:18] LABS: APPEARANCE CLOUDY (CLEAR); BILIRUBIN NEGATIVE (NEGATIVE); COLOR YELLOW (YELLOW); GLUCOSE 50 mg/dL (NEGATIVE); KETONE SMALL mg/dL (NEGATIVE); NITRITE NEGATIVE (NEGATIVE); PROTEIN 3+ mg/dL (NEGATIVE); SPECIFIC GRAVITY 1.015 (1.005-1.020); UROBILINOGEN NORMAL (NORMAL)
[2017-07-15 09:19] LABS: BACTERIA MANY /hpf (NONE SEEN); EPITHELIAL CELLS 0-5 /hpf (0-5); MUCUS <1+ /lpf (NONE SEEN); RED CELLS - URINE 0-5 /hpf (0-5); WHITE CELLS - URINE 25-50 /hpf (0-5)
[2017-07-15 09:22] LABS: BASOPHILS 0.2 % (0-2); EOSINOPHILS 5.6 % (0-7); HEMATOCRIT 36.6 % (36.0-48.0); IMMATURE GRANULOCYTES 0.3 % (0-5); LYMPHOCYTES 29.8 % (15-50); MCH 28.2 pg (26.0-34.0); MCHC 32.8 g/dL (31.0-37.0); MCV 85.9 fL (80.0-100.0); MEAN PLATELET VOLUME 9.8 fL (7.4-10.4); MONOCYTES 8.1 % (2-11); PLATELET COUNT 317 10x3/uL (130-400); RBC 4.26 10x6/uL (4.00-5.40); RDW 14.8 % (11.5-14.5); WBC 13.3 10x3/uL (4.8-10.8)
[2017-07-15 09:45] LABS: ALBUMIN 3.7 g/dL (3.4-5.0); ANION GAP 15.4 mmol/L (8-16); BILIRUBIN - TOTAL 0.36 mg/dL (0.2-1.3); CALCIUM 9.3 mg/dL (8.5-10.1); CARBON DIOXIDE 26.7 mmol/L (21.0-32.0); CREATININE - SERUM 1.5 mg/dL (0.6-1.3); POTASSIUM - SERUM 5.1 mmol/L (3.5-5.1); PROTEIN - SERUM 7.3 g/dL (6.4-8.2)
[2017-07-15 09:54] LABS: HCG URINE NEGATIVE (NEGATIVE)
== END 2017-07-15 11:28 | disposition home or self-care (01) ==
LOC: D.ER 08:16
PROVIDERS: Family Medicine
DX: N20.1 Calculus of ureter (principal); N39.0 Urinary tract infection, site not specified; R10.9 Unspecified abdominal pain; F17.200 Nicotine dependence, unspecified, uncomplicated; E11.9 Type 2 diabetes mellitus without complications; Z79.4 Long term (current) use of insulin; B19.20 Unspecified viral hepatitis C without hepatic coma

== ENCOUNTER 2017-09-26 15:32 | Emergency (ER) | payer MEDICAID ==
[~2017-09-26] VITALS: Ht 170.2 cm; Wt 66.8 kg
[2017-09-26 15:47] VITALS: Ht 170.2 cm; Wt 66.8 kg
[2017-09-26 17:14] LABS: ALBUMIN 3.9 g/dL (3.4-5.0); ANION GAP 11.2 mmol/L (8-16); BILIRUBIN - TOTAL 0.19 mg/dL (0.2-1.3); CALCIUM 9.7 mg/dL (8.5-10.1); CARBON DIOXIDE 29.1 mmol/L (21.0-32.0); CREATININE - SERUM 1.2 mg/dL (0.6-1.3); POTASSIUM - SERUM 4.3 mmol/L (3.5-5.1); PROTEIN - SERUM 7.6 g/dL (6.4-8.2)
[2017-09-26 18:06] LABS: BASOPHILS 0.2 % (0-2); EOSINOPHILS 3.1 % (0-7); HEMATOCRIT 32.4 % (36.0-48.0); HEMOGLOBIN 10.7 g/dL (12-16); IMMATURE GRANULOCYTES 0.1 % (0-5); LYMPHOCYTES 32.4 % (15-50); MCH 29.8 pg (26.0-34.0); MCV 90.3 fL (80.0-100.0); MEAN PLATELET VOLUME 9.7 fL (7.4-10.4); MONOCYTES 6.8 % (2-11); NEUTROPHILS 57.4 % (40-80); PLATELET COUNT 286 10x3/uL (130-400); RBC 3.59 10x6/uL (4.00-5.40); RDW 14.4 % (11.5-14.5); WBC 8.5 10x3/uL (4.8-10.8)
[2017-09-26 18:16] LABS: KETONE - SERUM NEGATIVE (NEGATIVE)
[2017-09-26 18:21] LABS: LIPASE 509 U/L (73-393)
[2017-09-26 18:50] LABS: APPEARANCE CLEAR (CLEAR); BILIRUBIN NEGATIVE (NEGATIVE); COLOR YELLOW (YELLOW); GLUCOSE 1000 mg/dL (NEGATIVE); HCG URINE NEGATIVE (NEGATIVE); KETONE NEGATIVE (NEGATIVE); NITRITE NEGATIVE (NEGATIVE); PROTEIN TRACE mg/dL (NEGATIVE); SPECIFIC GRAVITY 1.015 (1.005-1.020); UROBILINOGEN NORMAL (NORMAL)
[2017-09-26 18:51] LABS: EPITHELIAL CELLS 0-5 /hpf (0-5); WHITE CELLS - URINE 0-5 /hpf (0-5)
[2017-09-26 18:52] LABS: BACTERIA MODERATE /hpf (NONE SEEN); YEAST <1+ /hpf (NONE SEEN)
[2017-09-26 19:03] LABS: UDS - AMPHET NEGATIVE QUAL (NEGATIVE); UDS - BARB NEGATIVE QUAL (NEGATIVE); UDS - BENZO NEGATIVE QUAL (NEGATIVE); UDS - COCAINE NEGATIVE QUAL (NEGATIVE); UDS - OPIATE NEGATIVE QUAL (NEGATIVE); UDS - PCP NEGATIVE QUAL (NEGATIVE); UDS - THC POSITIVE QUAL (NEGATIVE)
[2017-09-26] MEDS ORDERED: HYDROCODON-ACE1 EAC7 PO (20:52)
[2017-09-26] MEDS ORDERED: NEURONTIN600 MG PO (20:52)
[2017-09-26 21:01] VITALS: BP 132/75
== END 2017-09-26 21:08 | disposition home or self-care (01) ==
LOC: D.ER 15:32
PROVIDERS: Family Medicine
DX: E11.40 Type 2 diabetes mellitus with diabetic neuropathy, unspecified (principal); E11.65 Type 2 diabetes mellitus with hyperglycemia; M79.605 Pain in left leg; M79.604 Pain in right leg

== ENCOUNTER 2018-01-04 16:00 | Emergency (ER) | payer SELFPAY ==
[~2018-01-04] VITALS: Ht 170.2 cm; Wt 59.1 kg
[~2018-01-04 16:00] MED LIST changes: +HYDROCODON-ACE1 EAC7 PO
[2018-01-04 16:04] VITALS: Ht 170.2 cm; Wt 59.1 kg
[2018-01-04] MEDS ORDERED: NEURONTIN800 MG PO (16:06)
[2018-01-04] MEDS ORDERED: NEURONTIN 300300 MG PO (16:37)
[2018-01-04 16:48] VITALS: BP 142/80
== END 2018-01-04 16:54 | disposition home or self-care (01) ==
LOC: D.ER 16:00
DX: G62.9 Polyneuropathy, unspecified (principal); E10.9 Type 1 diabetes mellitus without complications; Z79.4 Long term (current) use of insulin; F17.200 Nicotine dependence, unspecified, uncomplicated

== ENCOUNTER 2018-02-16 01:15 | Inpatient (IN) | payer MEDICAID ==
[~2018-02-16] VITALS: Ht 170.2 cm; Wt 63.6 kg
[~2018-02-16 01:15] MED LIST changes: +NEURONTIN 300300 MG PO; +NEURONTIN800 MG PO
[2018-02-16] MEDS ORDERED: PROTONIX40 MG PO (01:23)
[2018-02-16] MEDS ORDERED: CARAFATE1 G PO (01:23)
[2018-02-16] MEDS ORDERED: REGLAN5 MG PO (01:24)
[2018-02-16 02:14] LABS: BASOPHILS 0.3 % (0-2); EOSINOPHILS 4.1 % (0-7); HEMATOCRIT 27.6 % (36.0-48.0); HEMOGLOBIN 9.1 g/dL (12-16); IMMATURE GRANULOCYTES 0.4 % (0-5); LYMPHOCYTES 27.6 % (15-50); MCH 30.2 pg (26.0-34.0); MCV 91.7 fL (80.0-100.0); MEAN PLATELET VOLUME 9.3 fL (7.4-10.4); NEUTROPHILS 58.6 % (40-80); RBC 3.01 10x6/uL (4.00-5.40); WBC 15.2 10x3/uL (4.8-10.8)
[2018-02-16 02:27] LABS: ALBUMIN 2.5 g/dL (3.4-5.0); ALKALINE PHOSPHATASE 79 U/L (46-116); ALT (SGPT) 20 U/L (10-68); CALC OSMOLALITY 290 mosm/kg (275-300); CALCIUM 8.9 mg/dL (8.5-10.1); CARBON DIOXIDE 31.6 mmol/L (21.0-32.0); CHLORIDE - SERUM 99 mmol/L (98-107); CREATININE - SERUM 2.3 mg/dL (0.6-1.3); GLUCOSE 312 mg/dL (74-106); HCG SERUM NEGATIVE (NEGATIVE); PLATELET COUNT 377 10x3/uL (130-400); POTASSIUM - SERUM 4.6 mmol/L (3.5-5.1); PROTEIN - SERUM 6.2 g/dL (6.4-8.2); SODIUM 137 mmol/L (136-145); UREA NITROGEN 27 mg/dL (7-18); eGFR NON AFRICAN AMERICAN 26 mL/min (90-120)
[2018-02-16 02:33] LABS: AMYLASE - SERUM 32 U/L (25-115); LIPASE 237 U/L (73-393); MAGNESIUM - SERUM 1.7 mg/dL (1.8-2.4); PRO BNP 1338 pg/mL (0-125); TROPONIN-I < 0.017 ng/mL (0.000-0.060)
[2018-02-16 02:34] LABS: APPEARANCE CLEAR (CLEAR); BILIRUBIN NEGATIVE (NEGATIVE); COLOR YELLOW (YELLOW); GLUCOSE 50 mg/dL (NEGATIVE); KETONE NEGATIVE (NEGATIVE); NITRITE NEGATIVE (NEGATIVE); PROTEIN TRACE mg/dL (NEGATIVE); SPECIFIC GRAVITY 1.005 (1.005-1.020); UROBILINOGEN NORMAL (NORMAL)
[2018-02-16 02:40] LABS: UDS - AMPHET NEGATIVE QUAL (NEGATIVE); UDS - BARB NEGATIVE QUAL (NEGATIVE); UDS - BENZO NEGATIVE QUAL (NEGATIVE); UDS - COCAINE NEGATIVE QUAL (NEGATIVE); UDS - OPIATE NEGATIVE QUAL (NEGATIVE); UDS - PCP NEGATIVE QUAL (NEGATIVE); UDS - THC POSITIVE QUAL (NEGATIVE)
[2018-02-16 05:20] VITALS: BP 130/85; Ht 170.2 cm; Wt 63.6 kg
== END 2018-02-16 12:41 | disposition left against medical advice (07) | DRG 74 ==
LOC: D.ER 01:15 → D.MS 04:06
PROVIDERS: Family Medicine
DX: E11.43 Type 2 diabetes mellitus with diabetic autonomic (poly)neuropathy (principal); N17.9 Acute kidney failure, unspecified; E10.8 Type 1 diabetes mellitus with unspecified complications; F19.10 Other psychoactive substance abuse, uncomplicated; I50.9 Heart failure, unspecified; K59.00 Constipation, unspecified; E11.65 Type 2 diabetes mellitus with hyperglycemia; K31.84 Gastroparesis

== ENCOUNTER 2018-04-15 09:12 | Emergency (ER) | payer MEDICAID ==
[~2018-04-15] VITALS: Ht 170.2 cm; Wt 54.5 kg
[2018-04-15 09:18] VITALS: BP 163/100; Ht 170.2 cm; Wt 54.5 kg
[2018-04-15] MEDS ORDERED: NEURONTIN 300300 MG PO (09:40)
[2018-04-15] MEDS ORDERED: CLEOCIN HCL300 MG PO (09:40)
== END 2018-04-15 09:46 | disposition home or self-care (01) ==
LOC: D.ER 09:12
DX: L02.213 Cutaneous abscess of chest wall (principal); E09.40 Drug or chemical induced diabetes mellitus with neurological complications with diabetic neuropathy, unspecified

== ENCOUNTER 2018-05-10 14:17 | Emergency (ER) | payer MEDICAID ==
[~2018-05-10] VITALS: Ht 170.2 cm; Wt 56.8 kg
[~2018-05-10 14:17] MED LIST changes: +CLEOCIN HCL300 MG PO
[2018-05-10 14:30] VITALS: Ht 170.2 cm; Wt 56.8 kg
[2018-05-10 16:36] VITALS: BP 134/106
== END 2018-05-10 16:37 | disposition home or self-care (01) ==
LOC: D.ER 14:17
DX: Z76.0 Encounter for issue of repeat prescription (principal)

== ENCOUNTER 2018-11-27 12:58 | Emergency (ER) | payer SELFPAY ==
[~2018-11-27] VITALS: Ht 170.2 cm; Wt 56.8 kg
[2018-11-27 13:30] VITALS: BP 139/87; Ht 170.2 cm; Wt 56.8 kg
[2018-11-27 14:06] LABS: HCG URINE NEGATIVE (NEGATIVE)
[2018-11-27 14:08] LABS: APPEARANCE CLEAR (CLEAR); BILIRUBIN NEGATIVE (NEGATIVE); COLOR STRAW (YELLOW); GLUCOSE 100 mg/dL (NEGATIVE); KETONE NEGATIVE (NEGATIVE); NITRITE NEGATIVE (NEGATIVE); PROTEIN 3+ mg/dL (NEGATIVE); SPECIFIC GRAVITY 1.015 (1.005-1.020); UROBILINOGEN NORMAL (NORMAL)
[2018-11-27 14:12] LABS: BACTERIA FEW /hpf (NEGATIVE); EPITHELIAL CELLS 0-5 /hpf (0-5); RED CELLS - URINE 0-5 /hpf (0-5); WHITE CELLS - URINE 0-5 /hpf (NEGATIVE)
[2018-11-27 14:26] LABS: BASOPHILS 0.4 % (0-2); EOSINOPHILS 3.1 % (0-7); HEMATOCRIT 34.7 % (36.0-48.0); HEMOGLOBIN 11.1 g/dL (12-16); IMMATURE GRANULOCYTES 0.2 % (0-5); LYMPHOCYTES 35.9 % (15-50); MCH 28.9 pg (26.0-34.0); MCV 90.4 fL (80.0-100.0); MEAN PLATELET VOLUME 9.1 fL (7.4-10.4); MONOCYTES 8.4 % (2-11); RBC 3.84 10x6/uL (4.00-5.40); RDW 14.6 % (11.5-14.5); WBC 9.7 10x3/uL (4.8-10.8)
[2018-11-27 14:31] LABS: PLATELET COUNT 471 10x3/uL (130-400)
[2018-11-27 14:36] LABS: ALBUMIN 3.3 g/dL (3.4-5.0); ANION GAP 12.2 mmol/L (8-16); BILIRUBIN - TOTAL 0.17 mg/dL (0.2-1.3); CALCIUM 9.2 mg/dL (8.5-10.1); CARBON DIOXIDE 28.3 mmol/L (21.0-32.0); CREATININE - SERUM 1.8 mg/dL (0.6-1.3); POTASSIUM - SERUM 4.5 mmol/L (3.5-5.1); PROTEIN - SERUM 7.4 g/dL (6.4-8.2)
== END 2018-11-27 14:54 | disposition home or self-care (01) ==
LOC: D.ER 12:58
PROVIDERS: Family Medicine
DX: M79.605 Pain in left leg (principal)